=== PATIENT | male | born 1985 | race Caucasian/White ===

== ENCOUNTER 2020-09-07 01:03 | Observation (INO) ==
[2020-09-07] MEDS ORDERED: ONDANSETRON 4 MG/2 ML VIAL IV PRN (01:30)
[2020-09-07] MEDS ORDERED: MORPHINE 4 MG/1 ML VIAL IV PRN (01:30)
[2020-09-07] MEDS ORDERED: SODIUM CHLORIDE 0.9% 100 ML IV ONE (01:41)
[2020-09-07] MEDS ORDERED: PIPERACILLIN/TAZOBACTAM 3,375 MG VIAL IV ONE (01:41)
[2020-09-07] MEDS: PIPERACILLIN/TAZOBACTAM 3,375 MG in SODIUM CHLORIDE 0.9% 100 ML IV SCH ×3 (01:50→20:23)
[2020-09-07] MEDS: DEXTROSE 5% NACL 0.45% 1,000 ML IV SCH ×2 (01:50→22:17)
[2020-09-07] MEDS ORDERED: ACETAMINOPHEN IV ONE (02:16)
[2020-09-07] MEDS ORDERED: ACETAMINOPHEN INJ 1,000 MG in PREMIX 1 EACH IV ONE (02:30)
[2020-09-07] MEDS: KETOROLAC 15 MG/1 ML VIAL IV PRN ×3 (04:40→19:11)
[2020-09-07 06:44] LABS: Basophils % 0.2 % (0.0-0.8); Eosinophils # 0.1 10*3/uL (0.0-0.87); Eosinophils % 0.5 % (0.00-10.9); Hemoglobin 15.2 GM/DL (14.0-18.0); Immature Granulocytes % 0.4 %; Immature Granulocytes Absolute 0.04 #; Lymphocytes # 0.6 10*3/uL (1.4-4.0); Lymphocytes % 5.9 % (21.2-54.2); Mean Corpuscular HGB Conc 36.2 GM/DL (32-36); Mean Platelet Volume 10.2 FL (9.6-12.0); Monocytes % 7.7 % (1.7-12.7); Neutrophils % 85.3 % (38.7-73.9); Platelet Count 190 T/CUMM (130-400); Red Cell Distribution Width 11.9 % (9.3-17.3); White Blood Count 10.7 T/CUMM (4-12)
[2020-09-07 06:54] LABS: Calcium 8.2 MG/DL (8.5-10.1); Osmolality,Calculated 277.4 MOS/KG (273-304)
[2020-09-07] MEDS ORDERED: BUPIVACAINE MPF 0.25% 30 ML VIAL ONE (08:34)
[2020-09-07] MEDS ORDERED: LIDOCAINE 1%/EPI INJ 20 ML VIAL ONE (08:35)
[2020-09-07] MEDS ORDERED: MIDAZOLAM 2 MG/2 ML VIAL ONE (09:50)
[2020-09-07] MEDS ORDERED: fentaNYL 100 MCG/2 ML VIAL ONE ×3 (09:50→10:40)
[2020-09-07] MEDS ORDERED: TISSUE ADHESIVE 1 EACH APPLICATOR TOP ONE (09:53)
[2020-09-07] MEDS ORDERED: LACTATED RINGERS 1,000 ML IV ONE (10:40)
[2020-09-07] MEDS ORDERED: LIDOCAINE 2% 5 ML VIAL ONE (10:40)
[2020-09-07] MEDS ORDERED: propofoL 200 MG/20 ML VIAL IV ONE (10:40)
[2020-09-07] MEDS ORDERED: SUCCINYLCHOLINE 200 MG/10 ML VIAL ONE (10:40)
[2020-09-07] MEDS ORDERED: ONDANSETRON 4 MG/2 ML VIAL ONE (10:40)
[2020-09-07] MEDS ORDERED: DEXAMETHASONE 4 MG/1 ML VIAL ONE (10:40)
[2020-09-07] MEDS ORDERED: ROCURONIUM 50 MG/5 ML VIAL IV ONE (10:40)
[2020-09-07] MEDS ORDERED: GLYCOPYRROLATE 0.4 MG/2 ML VIAL ONE (10:54)
[2020-09-07] MEDS ORDERED: NEOSTIGMINE 10 MG/10 ML VIAL ONE (10:54)
[2020-09-07] MEDS: PANTOPRAZOLE 40 MG VIAL IV SCH (12:13)
[2020-09-08] MEDS: PIPERACILLIN/TAZOBACTAM 3,375 MG in SODIUM CHLORIDE 0.9% 100 ML IV SCH (06:13)
[2020-09-08 08:42] VITALS: BP 100/62
[2020-09-08] MEDS: PANTOPRAZOLE 40 MG VIAL IV SCH (09:34)
[2020-09-08] MEDS: KETOROLAC 15 MG/1 ML VIAL IV PRN (09:34)
== END 2020-09-08 10:41 | disposition home or self-care (01) ==
LOC: N.EDINP 01:03 → N.ED 01:03 → N.EDINP 02:53 → N.3E 03:27
PROVIDERS: ADMIT Surgery; ATTEND Surgery